=== PATIENT | male | born 1945 | race Caucasian/White ===

== ENCOUNTER → 2018-03-18 | Day surgery (SDC) | payer BC ==
[~2018-03-18] MED LIST: 24HOUR ALLERGY10 MG PO; BREO ELLIPTA 11 EACH INH; CALCIUM 600 +1 EAC1 PO; METFORMIN HCL500 MG PO; NORCO 5-325 TA1 EACH PO; OMEPRAZOLE20 M1 PO; PREDNISONE 5 MG5 M1 PO; PUB MULTIVITAM1 EACH PO; SIMVASTATIN10 MG PO; SINGULAIR 10 MG10 MG PO
[2018-03-18 06:29] LABS: HEMATOCRIT 39.6 % (42.0-52.0); HEMOGLOBIN 13.3 gm/dL (14.0-18.0); MCH 31.2 pg (26.0-34.0); MCHC 33.5 g/dL (28.0-37.0); MPV 8.1 fl. (7.2-11.1); RBC 4.25 mil/uL (4.50-6.00); RDW-CV 13.6 % (10.5-14.5); WBC 6.6 thou/uL (4.0-11.0)
[2018-03-18 06:36] LABS: CALCIUM 9.1 mg/dL (8.5-10.1); CREATININE 0.9 mg/dL (0.6-1.3)
[2018-03-18 06:41] LABS: ALBUMIN 3.4 g/dL (3.4-5.0); TOTAL BILIRUBIN 0.3 mg/dL (<0.1-1.0); TOTAL PROTEIN 7.3 g/dL (6.4-8.2)
--- NOTE | 2018-03-19 12:54 | EKG ---
[place] [address] ELECTROCARDIOGRAM REPORT Name: ASA FARRAR Room: [facility]#: [id number] Admission: 03/18/18 Attend Phys: Salomón Brown Discharge: Date of : 47 Report #: [id number] THIS REPORT FOR: //name// [facility] Test Date: 2018-03-18 Test Time: 06:36:53 Pat Name: ASA FARRAR Department: Room: Gender: Information And Data Architect Analyst: [facility] : 1945 Requested By: Salomón Brown Order Number: [id number] MD: Braden Magana Measurements Intervals [place] Rate: 61 P: 25 [place]: 184 QRS: 22 QRSD: 114 T: 27 QT: 413 QTc: 416 Interpretive Statements Sinus rhythm Incomplete right bundle branch block No previous ECG available for comparison Electronically Signed On 03-19-2018 12:54:37 CDT by Braden Magana [email or web address] <ELECTRONICALLY SIGNED> By: Braden Magana MD, [facility] 03/19/18 1254 [id number] [id number] Braden Magana MD, FACC /EPI
--- NOTE | 2018-04-03 13:07 | OP ---
[facility] [address] [place] [address] OPERATIVE REPORT Name: ASA FARRAR Room: [facility]#: [id number] Admission: 03/18/18 Attend Phys: Salomón Brown Discharge: Date of : 47 Report #: [id number] THIS REPORT FOR: //name// CC: Demetrius Brown DATE OF SERVICE: 03/18/2018 PREOPERATIVE DIAGNOSIS: Incarcerated ventral incisional hernia. POSTOPERATIVE DIAGNOSIS: Incarcerated ventral incisional hernia. PROCEDURE: Laparoscopic repair of incarcerated ventral incisional hernia with mesh. SURGEON: Salomón Brown MD ANESTHESIA: General. ESTIMATED BLOOD LOSS: Minimal. SPECIMEN: Hernia sac. DESCRIPTION OF PROCEDURE: After informed consent was obtained, the patient was brought to the operating room and placed supine. SCDs were placed and working and preoperative antibiotics were administered, general anesthesia was induced. The abdomen was prepped and draped in the usual sterile fashion. A 5 mm incision was made in the left upper quadrant. A 5 mm trocar was placed under direct vision. Left-sided 12 mm port and a left-sided 5 mm port were placed as well. He had incarcerated omentum and small bowel in the right lower quadrant hernia defect. This was all carefully reduced with a combination of blunt dissection as well as cautery to cauterize small bleeders. After the contents had been fully reduced, he had a defect measuring approximately 5 x 5 cm in the right lower quadrant corresponding with the right lower quadrant incision for his sigmoidectomy. I therefore inserted a 15 x 15 cm circular Ventralight Echo mesh. It was tacked up to the abdominal wall using 25 absorbable tacks. I then placed three 2-0 Ethibond suture using a suture passer circumferentially around the mesh for extra support. The ports were then removed under direct vision. The skin was closed with 4-0 Monocryl. fascia being closed with a 0 Vicryl. Sterile [place] [address] OPERATIVE REPORT Name: ASA FARRAR Room: [facility]#: [id number] Admission: 03/18/18 Attend Phys: Salomón Brown Discharge: Date of : 47 Report #: [id number] COMPLICATIONS: None. DISPOSITION: The patient was taken to recovery in satisfactory condition. <ELECTRONICALLY SIGNED> By: Salomón Brown MD 04/03/18 1307 [id number] [id number] Brown MD /nt
== END | disposition home or self-care (01) ==
LOC: M.SUR 06:13
PROVIDERS: Surgery
DX: K43.0 Incisional hernia with obstruction, without gangrene (principal); E78.5 Hyperlipidemia, unspecified; J45.909 Unspecified asthma, uncomplicated; K21.9 Gastro-esophageal reflux disease without esophagitis; Z91.040 Latex allergy status; Z79.899 Other long term (current) drug therapy; Z79.82 Long term (current) use of aspirin; Z98.890 Other specified postprocedural states